=== PATIENT | female | born 1985 | race Caucasian/White ===

== ENCOUNTER 2017-10-11 13:39 | Inpatient (IN) | payer MEDICAID ==
[2017-10-11 14:56] LABS: ADD MAN DIFF? NO
[2017-10-11 15:06] LABS: WHITE BLOOD COUNT 9.3 10^3/ul (4.8-10.8)
[2017-10-11 15:06] LABS: BASOPHILS % 0.3 % (0.0-2.0); EOSINOPHILS % 0.3 % (0.0-7.0); HEMATOCRIT 31.6 % (37.0-47.0); HEMOGLOBIN 10.6 g/dl (12.0-16.0); LYMPHOCYTES # 1.7 10^3/ul (0.8-2.9); LYMPHOCYTES % 18.4 % (15.0-51.0); MEAN CORPUSCULAR HEMOGLOBIN 29.3 pg (29.0-33.0); MEAN CORPUSCULAR HGB CONC 33.5 g/dl (32.0-37.0); MEAN CORPUSCULAR VOLUME 87.3 fl (82.0-101.0); MEAN PLATELET VOLUME 12.7 fl (7.4-10.4); MONOCYTE # 0.8 10^3/ul (0.3-0.9); MONOCYTES % 8.2 % (0.0-11.0); NEUTROPHIL # 6.7 10^3/ul (1.6-7.5); NEUTROPHILS % 72.4 % (39.0-77.0); PLATELET COUNT 111 10^3/UL (140-415); RED BLOOD COUNT 3.62 10^6/ul (4.20-5.40); RED CELL DISTRIBUTION WIDTH 13.5 % (11.5-14.5)
[2017-10-11 15:14] LABS: INR 0.89; PROTIME 12.1 Sec (11.9-14.9); PT RATIO 0.9
[2017-10-11 15:15] LABS: PARTIAL THROMBOPLASTIN TIME 26.6 Sec (25.0-35.0)
[2017-10-11 15:16] LABS: ALANINE AMINOTRANSFERASE 67 IU/L (13-69); ALBUMIN 3.2 g/dl (3.3-4.9); ALKALINE PHOSPHATASE 89 IU/L (42-121); ANION GAP 13 (8-16); ASPARTATE AMINO TRANSFERASE 39 IU/L (15-46); BILIRUBIN,INDIRECT 0.1 mg/dl (0-1.1); BILIRUBIN,TOTAL 0.1 mg/dl (0.2-1.3); BLOOD UREA NITROGEN 16 mg/dl (7-20); CALCIUM 8.8 mg/dl (8.4-10.2); CARBON DIOXIDE 21 mmol/L (21-31); CHLORIDE 108 mmol/L (97-110); CREATININE 0.73 mg/dl (0.44-1.00); GLUCOSE 103 mg/dl (70-220); SODIUM 138 mmol/L (135-144); TOTAL PROTEIN 6.1 g/dl (6.1-8.1); URIC ACID 6.9 mg/dl (3.1-7.9)
[2017-10-11 16:05] LABS: ADD UMIC YES; UR AMORPHOUS CRYSTAL FEW /HPF (NONE SEEN); UR ASCORBIC ACID NEGATIVE (NEGATIVE); UR BILIRUBIN (Dip) NEGATIVE (NEGATIVE); UR BLOOD (Dip) NEGATIVE (NEGATIVE); UR CLARITY SLIGHTLY CLOUDY (CLEAR); UR COLOR YELLOW (YELLOW); UR GLUCOSE (Dip) NEGATIVE (NEGATIVE); UR HYALINE CAST FEW /HPF (NONE SEEN); UR KETONES (Dip) NEGATIVE (NEGATIVE); UR LEUKOCYTE ESTERASE (Dip) NEGATIVE Leu/ul (NEGATIVE); UR MUCUS FEW /HPF (NONE SEEN); UR NITRITE (Dip) NEGATIVE (NEGATIVE); UR RBC 1 /HPF (0-5); UR SPECIFIC GRAVITY (Dip) 1.013 (1.003-1.030); UR SQUAMOUS EPITHELIAL CELL FEW /HPF (FEW); UR TOTAL PROTEIN (Dip) 3+ mg/dl (NEGATIVE); UR UROBILINOGEN (Dip) NEGATIVE (NEGATIVE); UR WBC 3 /HPF (0-5)
[2017-10-11] MEDS: LACTATED RINGER'S 1,000 ML IV (17:27)
[2017-10-11] MEDS: MAGNESIUM SULFATE 4 GM/100 ML 100 ML IV (17:30)
[2017-10-11] MEDS: MAGNESIUM SULFATE 20 GM/500 ML 500 ML IV (17:55)
[2017-10-11] MEDS: LABETALOL 200 MG TAB PO (21:21)
[2017-10-12 01:08] LABS: MAGNESIUM 5.1 mg/dl (1.7-2.5)
[2017-10-12] MEDS: MAGNESIUM SULFATE 20 GM/500 ML 500 ML IV ×2 (03:03→09:02)
[2017-10-12] MEDS: LACTATED RINGER'S 1,000 ML IV ×2 (03:47→20:00)
[2017-10-12 08:18] LABS: MAGNESIUM 5.7 mg/dl (1.7-2.5)
[2017-10-12] MEDS: ACETAMINOPHEN 325 MG TAB PO (08:54)
[2017-10-12] MEDS: LABETALOL 200 MG TAB PO (08:56)
[2017-10-12] MEDS: ONDANSETRON 4 MG INJ IV (08:57)
[2017-10-12] MEDS ORDERED: INFLUENZA VIRUS VACCINE 0.5 ML (DISPENSING) IM* (09:00)
[2017-10-12 12:33] LABS: MAGNESIUM 5.3 mg/dl (1.7-2.5)
[2017-10-12 12:51] LABS: RUPTURE FETAL MEMBRANES NEGATIVE (NEGATIVE)
[2017-10-12 14:53] LABS: ADD MAN DIFF? NO
[2017-10-12 15:01] LABS: WHITE BLOOD COUNT 11.2 10^3/ul (4.8-10.8)
[2017-10-12 15:01] LABS: BASOPHILS % 0.3 % (0.0-2.0); EOSINOPHILS % 0.1 % (0.0-7.0); HEMATOCRIT 31.5 % (37.0-47.0); HEMOGLOBIN 10.9 g/dl (12.0-16.0); LYMPHOCYTES # 1.4 10^3/ul (0.8-2.9); LYMPHOCYTES % 12.5 % (15.0-51.0); MEAN CORPUSCULAR HEMOGLOBIN 29.8 pg (29.0-33.0); MEAN CORPUSCULAR HGB CONC 34.6 g/dl (32.0-37.0); MEAN CORPUSCULAR VOLUME 86.1 fl (82.0-101.0); MEAN PLATELET VOLUME 12.2 fl (7.4-10.4); MONOCYTE # 0.8 10^3/ul (0.3-0.9); MONOCYTES % 6.9 % (0.0-11.0); NEUTROPHIL # 8.9 10^3/ul (1.6-7.5); NEUTROPHILS % 79.8 % (39.0-77.0); PLATELET COUNT 119 10^3/UL (140-415); RED BLOOD COUNT 3.66 10^6/ul (4.20-5.40); RED CELL DISTRIBUTION WIDTH 13.6 % (11.5-14.5)
[2017-10-12 15:29] LABS: ALANINE AMINOTRANSFERASE 77 IU/L (13-69); ALBUMIN 2.9 g/dl (3.3-4.9); ALBUMIN/GLOBULIN RATIO 1.07; ALKALINE PHOSPHATASE 95 IU/L (42-121); ANION GAP 11 (8-16); ASPARTATE AMINO TRANSFERASE 56 IU/L (15-46); BILIRUBIN,INDIRECT 0.1 mg/dl (0-1.1); BILIRUBIN,TOTAL 0.1 mg/dl (0.2-1.3); BLOOD UREA NITROGEN 12 mg/dl (7-20); CALCIUM 7.2 mg/dl (8.4-10.2); CARBON DIOXIDE 21 mmol/L (21-31); CHLORIDE 106 mmol/L (97-110); CREATININE 0.65 mg/dl (0.44-1.00); GLUCOSE 108 mg/dl (70-220); POTASSIUM 4.3 mmol/L (3.5-5.1); SODIUM 134 mmol/L (135-144); TOTAL PROTEIN 5.6 g/dl (6.1-8.1)
[2017-10-12] MEDS: BETAMET NA PHOS/AC(6 MG/ML) 5ML INJ IM (16:09)
[2017-10-12] MEDS: DEXTROSE 5%-LR 1,000 ML IV (16:27)
[2017-10-12 17:27] LABS: COLLECTION PERIOD 24 hrs
[2017-10-12] MEDS ORDERED: LABETALOL HCL 20MG INJ IV (18:00)
[2017-10-12 18:28] LABS: CREATININE,URINE RANDOM 36.89 mg/dl (20-320)
[2017-10-12 18:31] LABS: COLLECTION PERIOD 24 hrs; CREATININE CLEARANCE 118.2 mls/min (84.0-162.0); SCRET 0.65 mg/dl (0.44-1.00); VOLUME 3000 ml/24hrs
[2017-10-12 18:40] LABS: VOLUME 3000 mls
[2017-10-12 18:55] LABS: MAGNESIUM 4.8 mg/dl (1.7-2.5)
[2017-10-12 19:39] LABS: RUPTURE FETAL MEMBRANES NEGATIVE (NEGATIVE)
[2017-10-12] MEDS: FUROSEMIDE 20 MG INJ IV (20:50)
[2017-10-12] MEDS ORDERED: DIPHENHYDRAMINE 50 MG INJ IM (23:30)
[2017-10-13] MEDS: LABETALOL 200 MG TAB PO ×2 (00:16→09:59)
[2017-10-13 01:28] LABS: MAGNESIUM 4.9 mg/dl (1.7-2.5)
[2017-10-13] MEDS: BETAMET NA PHOS/AC(6 MG/ML) 5ML INJ IM (04:16)
[2017-10-13] MEDS: MAGNESIUM SULFATE 20 GM/500 ML 500 ML IV (04:45)
[2017-10-13 06:44] LABS: ADD MAN DIFF? NO
[2017-10-13 06:50] LABS: BASOPHILS % 0.1 % (0.0-2.0); HEMATOCRIT 32.7 % (37.0-47.0); HEMOGLOBIN 11.3 g/dl (12.0-16.0); LYMPHOCYTES # 0.9 10^3/ul (0.8-2.9); MEAN CORPUSCULAR HEMOGLOBIN 30.4 pg (29.0-33.0); MEAN CORPUSCULAR HGB CONC 34.6 g/dl (32.0-37.0); MEAN CORPUSCULAR VOLUME 87.9 fl (82.0-101.0); MEAN PLATELET VOLUME 12.2 fl (7.4-10.4); MONOCYTE # 0.2 10^3/ul (0.3-0.9); MONOCYTES % 2.1 % (0.0-11.0); NEUTROPHIL # 9.7 10^3/ul (1.6-7.5); NEUTROPHILS % 89.1 % (39.0-77.0); PLATELET COUNT 132 10^3/UL (140-415); RED BLOOD COUNT 3.72 10^6/ul (4.20-5.40); RED CELL DISTRIBUTION WIDTH 13.6 % (11.5-14.5)
[2017-10-13 06:50] LABS: WHITE BLOOD COUNT 10.9 10^3/ul (4.8-10.8)
[2017-10-13 07:29] LABS: ALANINE AMINOTRANSFERASE 67 IU/L (13-69); ALBUMIN/GLOBULIN RATIO 1.11; ALKALINE PHOSPHATASE 98 IU/L (42-121); ANION GAP 15 (8-16); ASPARTATE AMINO TRANSFERASE 41 IU/L (15-46); BLOOD UREA NITROGEN 12 mg/dl (7-20); CALCIUM 7.3 mg/dl (8.4-10.2); CARBON DIOXIDE 20 mmol/L (21-31); CHLORIDE 108 mmol/L (97-110); CREATININE 0.74 mg/dl (0.44-1.00); GLUCOSE 137 mg/dl (70-220); POTASSIUM 4.5 mmol/L (3.5-5.1); SODIUM 138 mmol/L (135-144); TOTAL PROTEIN 5.7 g/dl (6.1-8.1)
[2017-10-13] MEDS: DEXTROSE 5%-LR 1,000 ML IV (10:04)
[2017-10-13] MEDS: FUROSEMIDE 20 MG INJ IV ×2 (12:20→21:59)
[2017-10-13] MEDS ORDERED: BETAMET NA PHOS/AC(6 MG/ML) 5ML INJ IM (16:00)
[2017-10-13 18:47] LABS: MAGNESIUM 4.9 mg/dl (1.7-2.5)
[2017-10-13 19:01] LABS: TROPONIN-I < 0.012 ng/ml (0.00-0.12)
[2017-10-13] MEDS: LABETALOL 100 MG TAB PO (21:04)
[2017-10-14] MEDS: MAGNESIUM SULFATE 20 GM/500 ML 500 ML IV (00:25)
[2017-10-14 01:09] LABS: MAGNESIUM 4.2 mg/dl (1.7-2.5)
[2017-10-14 01:20] LABS: TROPONIN-I 0.014 ng/ml (0.00-0.12)
[2017-10-14] MEDS: LACTATED RINGER'S 1,000 ML IV (03:47)
[2017-10-14 07:33] LABS: ADD MAN DIFF? NO
[2017-10-14 07:39] LABS: Allen Test ACCEPTAB; Arterial Base Excess -0.4 mmol/L (-3.0-3); Arterial Blood Gas Oxygen Sat 97.5 mmHG (95.0-98.0); Arterial COHb 0.3 % (0.0-3.0); Arterial Fraction of Oxyhgb 96.8 % (93.0-99.0); Arterial HCO3 23.2 mmol/L (22.0-26.0); Arterial MetHb 0.4 % (0.0-1.5); Arterial Total Hemglobin 11.8 g/dl (12.0-18.0); Arterial pCO2 34.4 mmhg (35-45); MODE NASAL CANNULA; Site Right Radial
[2017-10-14 07:49] LABS: WHITE BLOOD COUNT 14.4 10^3/ul (4.8-10.8)
[2017-10-14 07:49] LABS: BASOPHILS % 0.1 % (0.0-2.0); HEMATOCRIT 33.2 % (37.0-47.0); HEMOGLOBIN 11.1 g/dl (12.0-16.0); LYMPHOCYTES # 1.1 10^3/ul (0.8-2.9); LYMPHOCYTES % 7.7 % (15.0-51.0); MEAN CORPUSCULAR HEMOGLOBIN 29.7 pg (29.0-33.0); MEAN CORPUSCULAR HGB CONC 33.4 g/dl (32.0-37.0); MEAN CORPUSCULAR VOLUME 88.8 fl (82.0-101.0); MEAN PLATELET VOLUME 12.4 fl (7.4-10.4); MONOCYTE # 0.9 10^3/ul (0.3-0.9); MONOCYTES % 6.3 % (0.0-11.0); NEUTROPHIL # 12.2 10^3/ul (1.6-7.5); NEUTROPHILS % 84.9 % (39.0-77.0); PLATELET COUNT 130 10^3/UL (140-415); RED BLOOD COUNT 3.74 10^6/ul (4.20-5.40)
[2017-10-14 08:12] LABS: ALANINE AMINOTRANSFERASE 68 IU/L (13-69); ALKALINE PHOSPHATASE 93 IU/L (42-121); ANION GAP 13 (8-16); ASPARTATE AMINO TRANSFERASE 45 IU/L (15-46); BLOOD UREA NITROGEN 21 mg/dl (7-20); CALCIUM 7.4 mg/dl (8.4-10.2); CARBON DIOXIDE 22 mmol/L (21-31); CHLORIDE 107 mmol/L (97-110); CREATININE 0.79 mg/dl (0.44-1.00); GLUCOSE 104 mg/dl (70-220); POTASSIUM 4.7 mmol/L (3.5-5.1); SODIUM 137 mmol/L (135-144); TOTAL PROTEIN 5.5 g/dl (6.1-8.1)
[2017-10-14 08:14] LABS: MAGNESIUM 4.8 mg/dl (1.7-2.5)
[2017-10-14] MEDS: LABETALOL 100 MG TAB PO ×2 (09:27→21:23)
[2017-10-14] MEDS: FUROSEMIDE 20 MG INJ IV ×2 (11:22→18:56)
[2017-10-14 13:55] LABS: ALANINE AMINOTRANSFERASE 84 IU/L (13-69); ALBUMIN/GLOBULIN RATIO 1.11; ALKALINE PHOSPHATASE 88 IU/L (42-121); ANION GAP 13 (8-16); ASPARTATE AMINO TRANSFERASE 71 IU/L (15-46); BLOOD UREA NITROGEN 20 mg/dl (7-20); CALCIUM 7.3 mg/dl (8.4-10.2); CARBON DIOXIDE 23 mmol/L (21-31); CHLORIDE 107 mmol/L (97-110); CREATININE 0.76 mg/dl (0.44-1.00); GLUCOSE 113 mg/dl (70-220); POTASSIUM 4.1 mmol/L (3.5-5.1); SODIUM 139 mmol/L (135-144); TOTAL PROTEIN 5.7 g/dl (6.1-8.1)
[2017-10-14 13:56] LABS: MAGNESIUM 4.3 mg/dl (1.7-2.5)
[2017-10-14] MEDS: HYDROCORTISONE 0.5% 28.35 GM CR TOP ×2 (18:43→20:13)
[2017-10-14] MEDS: AL HYDROX/MG HYDROX/SIMETH 30 ML CUP PO (21:24)
[2017-10-15] MEDS: FUROSEMIDE 20 MG INJ IV ×2 (06:28→18:20)
[2017-10-15] MEDS: HYDROCORTISONE 0.5% 28.35 GM CR TOP ×2 (06:33→23:06)
[2017-10-15] MEDS: LABETALOL 100 MG TAB PO ×2 (09:01→20:47)
[2017-10-16] MEDS: FUROSEMIDE 20 MG INJ IV (05:40)
[2017-10-16] MEDS: HYDROCORTISONE 0.5% 28.35 GM CR TOP (05:47)
[2017-10-16 07:39] LABS: ADD MAN DIFF? NO
[2017-10-16 07:44] LABS: WHITE BLOOD COUNT 10.5 10^3/ul (4.8-10.8)
[2017-10-16 07:44] LABS: BASOPHILS % 0.3 % (0.0-2.0); EOSINOPHILS # 0.1 10^3/ul (0.0-0.5); EOSINOPHILS % 0.8 % (0.0-7.0); HEMATOCRIT 33.3 % (37.0-47.0); HEMOGLOBIN 11.1 g/dl (12.0-16.0); LYMPHOCYTES % 19.4 % (15.0-51.0); MEAN CORPUSCULAR HEMOGLOBIN 29.5 pg (29.0-33.0); MEAN CORPUSCULAR HGB CONC 33.3 g/dl (32.0-37.0); MEAN CORPUSCULAR VOLUME 88.6 fl (82.0-101.0); MEAN PLATELET VOLUME 12.2 fl (7.4-10.4); MONOCYTE # 1.2 10^3/ul (0.3-0.9); MONOCYTES % 11.5 % (0.0-11.0); NEUTROPHIL # 7.1 10^3/ul (1.6-7.5); NEUTROPHILS % 67.3 % (39.0-77.0); PLATELET COUNT 129 10^3/UL (140-415); RED BLOOD COUNT 3.76 10^6/ul (4.20-5.40); RED CELL DISTRIBUTION WIDTH 13.3 % (11.5-14.5)
[2017-10-16 08:11] LABS: BLOOD UREA NITROGEN 21 mg/dl (7-20); CALCIUM 7.9 mg/dl (8.4-10.2); CARBON DIOXIDE 25 mmol/L (21-31); CHLORIDE 103 mmol/L (97-110); GLUCOSE 84 mg/dl (70-220); MAGNESIUM 2.3 mg/dl (1.7-2.5); PHOSPHORUS 5.2 mg/dl (2.5-4.9); SODIUM 136 mmol/L (135-144)
[2017-10-16 08:14] LABS: ANION GAP 12 (8-16); POTASSIUM 4.3 mmol/L (3.5-5.1)
[2017-10-16] MEDS: LABETALOL 100 MG TAB PO ×2 (09:13→21:00)
[2017-10-17 07:37] LABS: ADD MAN DIFF? NO
[2017-10-17 07:49] LABS: WHITE BLOOD COUNT 10.4 10^3/ul (4.8-10.8)
[2017-10-17 07:50] LABS: BASOPHILS % 0.4 % (0.0-2.0); EOSINOPHILS # 0.1 10^3/ul (0.0-0.5); EOSINOPHILS % 1.3 % (0.0-7.0); HEMATOCRIT 33.3 % (37.0-47.0); LYMPHOCYTES # 2.3 10^3/ul (0.8-2.9); LYMPHOCYTES % 21.9 % (15.0-51.0); MEAN CORPUSCULAR HEMOGLOBIN 29.3 pg (29.0-33.0); MEAN CORPUSCULAR VOLUME 88.8 fl (82.0-101.0); MEAN PLATELET VOLUME 12.2 fl (7.4-10.4); MONOCYTE # 1.1 10^3/ul (0.3-0.9); MONOCYTES % 10.2 % (0.0-11.0); NEUTROPHIL # 6.8 10^3/ul (1.6-7.5); NEUTROPHILS % 65.5 % (39.0-77.0); PLATELET COUNT 119 10^3/UL (140-415); RED BLOOD COUNT 3.75 10^6/ul (4.20-5.40); RED CELL DISTRIBUTION WIDTH 13.4 % (11.5-14.5)
[2017-10-17 07:57] LABS: ALANINE AMINOTRANSFERASE 97 IU/L (13-69); ALBUMIN 2.7 g/dl (3.3-4.9); ALKALINE PHOSPHATASE 108 IU/L (42-121); ANION GAP 10 (8-16); ASPARTATE AMINO TRANSFERASE 71 IU/L (15-46); BILIRUBIN,INDIRECT 0.1 mg/dl (0-1.1); BILIRUBIN,TOTAL 0.1 mg/dl (0.2-1.3); BLOOD UREA NITROGEN 20 mg/dl (7-20); CARBON DIOXIDE 24 mmol/L (21-31); CHLORIDE 106 mmol/L (97-110); GLUCOSE 72 mg/dl (70-220); POTASSIUM 4.3 mmol/L (3.5-5.1); SODIUM 136 mmol/L (135-144); TOTAL PROTEIN 5.2 g/dl (6.1-8.1)
[2017-10-17 07:58] LABS: ALBUMIN/GLOBULIN RATIO 1.08
[2017-10-17] MEDS: FUROSEMIDE 20 MG TAB PO (08:17)
[2017-10-17] MEDS: LABETALOL 100 MG TAB PO ×2 (09:05→21:17)
[2017-10-17] MEDS: PRENATAL VITAMIN PO ×2 (09:27→09:35)
[2017-10-17] MEDS: HYDROCORTISONE 0.5% 28.35 GM CR TOP ×2 (09:37→21:00)
[2017-10-18] MEDS: FUROSEMIDE 20 MG TAB PO (09:00)
[2017-10-18] MEDS: LABETALOL 100 MG TAB PO ×2 (09:09→20:52)
[2017-10-18] MEDS: HYDROCORTISONE 0.5% 28.35 GM CR TOP ×2 (09:11→20:58)
[2017-10-18] MEDS: LACTATED RINGER'S 500 ML IV (12:53)
[2017-10-19] MEDS: PRENATAL VITAMIN PO (07:52)
[2017-10-19 08:38] LABS: ADD MAN DIFF? NO
[2017-10-19 08:50] LABS: BASOPHILS % 0.3 % (0.0-2.0); EOSINOPHILS # 0.1 10^3/ul (0.0-0.5); HEMATOCRIT 32.8 % (37.0-47.0); HEMOGLOBIN 11.2 g/dl (12.0-16.0); LYMPHOCYTES # 2.1 10^3/ul (0.8-2.9); LYMPHOCYTES % 22.2 % (15.0-51.0); MEAN CORPUSCULAR HEMOGLOBIN 30.1 pg (29.0-33.0); MEAN CORPUSCULAR HGB CONC 34.1 g/dl (32.0-37.0); MEAN CORPUSCULAR VOLUME 88.2 fl (82.0-101.0); MEAN PLATELET VOLUME 12.4 fl (7.4-10.4); MONOCYTE # 0.8 10^3/ul (0.3-0.9); MONOCYTES % 8.5 % (0.0-11.0); NEUTROPHIL # 6.3 10^3/ul (1.6-7.5); NEUTROPHILS % 67.6 % (39.0-77.0); PLATELET COUNT 125 10^3/UL (140-415); RED BLOOD COUNT 3.72 10^6/ul (4.20-5.40); RED CELL DISTRIBUTION WIDTH 13.5 % (11.5-14.5)
[2017-10-19 08:50] LABS: WHITE BLOOD COUNT 9.3 10^3/ul (4.8-10.8)
[2017-10-19] MEDS: HYDROCORTISONE 0.5% 28.35 GM CR TOP ×2 (09:00→21:00)
[2017-10-19] MEDS: FUROSEMIDE 20 MG TAB PO (09:00)
[2017-10-19] MEDS: LABETALOL 100 MG TAB PO ×2 (09:06→21:38)
[2017-10-19 09:09] LABS: PARTIAL THROMBOPLASTIN TIME 26.3 Sec (25.0-35.0)
[2017-10-19 09:17] LABS: ALANINE AMINOTRANSFERASE 63 IU/L (13-69); ALBUMIN 2.5 g/dl (3.3-4.9); ALBUMIN/GLOBULIN RATIO 0.96; ALKALINE PHOSPHATASE 117 IU/L (42-121); ANION GAP 7 (8-16); ASPARTATE AMINO TRANSFERASE 28 IU/L (15-46); BILIRUBIN,INDIRECT 0.1 mg/dl (0-1.1); BILIRUBIN,TOTAL 0.1 mg/dl (0.2-1.3); BLOOD UREA NITROGEN 14 mg/dl (7-20); CARBON DIOXIDE 21 mmol/L (21-31); CHLORIDE 111 mmol/L (97-110); CREATININE 0.67 mg/dl (0.44-1.00); GLUCOSE 80 mg/dl (70-220); POTASSIUM 4.4 mmol/L (3.5-5.1); SODIUM 135 mmol/L (135-144); TOTAL PROTEIN 5.1 g/dl (6.1-8.1); URIC ACID 7.2 mg/dl (3.1-7.9)
[2017-10-19 09:34] LABS: INR 0.96; PROTIME 12.9 Sec (11.9-14.9)
[2017-10-19 11:24] LABS: ADD UMIC YES; UR ASCORBIC ACID NEGATIVE (NEGATIVE); UR BACTERIA FEW /HPF (NONE SEEN); UR BILIRUBIN (Dip) NEGATIVE (NEGATIVE); UR BLOOD (Dip) NEGATIVE (NEGATIVE); UR CLARITY SLIGHTLY CLOUDY (CLEAR); UR COLOR YELLOW (YELLOW); UR GLUCOSE (Dip) NEGATIVE (NEGATIVE); UR KETONES (Dip) NEGATIVE (NEGATIVE); UR LEUKOCYTE ESTERASE (Dip) NEGATIVE Leu/ul (NEGATIVE); UR MUCUS FEW /HPF (NONE SEEN); UR NITRITE (Dip) NEGATIVE (NEGATIVE); UR RBC 2 /HPF (0-5); UR SQUAMOUS EPITHELIAL CELL FEW /HPF (FEW); UR TOTAL PROTEIN (Dip) 3+ mg/dl (NEGATIVE); UR UROBILINOGEN (Dip) NEGATIVE (NEGATIVE); UR WBC 3 /HPF (0-5)
[2017-10-20] MEDS: FUROSEMIDE 20 MG TAB PO (09:00)
[2017-10-20] MEDS: LABETALOL 100 MG TAB PO ×2 (09:12→21:29)
[2017-10-20] MEDS: PRENATAL VITAMIN PO (09:15)
[2017-10-20] MEDS: HYDROCORTISONE 0.5% 28.35 GM CR TOP ×2 (20:20→21:00)
[2017-10-21] MEDS: HYDROCORTISONE 0.5% 28.35 GM CR TOP ×2 (09:00→21:13)
[2017-10-21] MEDS: PRENATAL VITAMIN PO (09:17)
[2017-10-21] MEDS: LABETALOL 100 MG TAB PO ×2 (09:18→21:13)
[2017-10-22] MEDS: LABETALOL 100 MG TAB PO ×2 (09:06→16:51)
[2017-10-22] MEDS: HYDROCORTISONE 0.5% 28.35 GM CR TOP ×2 (09:08→21:00)
[2017-10-22] MEDS: PRENATAL VITAMIN PO (09:08)
[2017-10-22] MEDS: AL HYDROX/MG HYDROX/SIMETH 30 ML CUP PO (17:24)
[2017-10-23] MEDS: LABETALOL 100 MG TAB PO ×4 (00:53→23:30)
[2017-10-23 07:50] LABS: ADD MAN DIFF? NO
[2017-10-23 07:59] LABS: WHITE BLOOD COUNT 8.6 10^3/ul (4.8-10.8)
[2017-10-23 07:59] LABS: BASOPHIL # 0.1 10^3/ul (0.0-0.1); BASOPHILS % 0.6 % (0.0-2.0); EOSINOPHILS # 0.1 10^3/ul (0.0-0.5); EOSINOPHILS % 0.9 % (0.0-7.0); HEMATOCRIT 33.6 % (37.0-47.0); HEMOGLOBIN 11.5 g/dl (12.0-16.0); LYMPHOCYTES # 2.3 10^3/ul (0.8-2.9); LYMPHOCYTES % 26.5 % (15.0-51.0); MEAN CORPUSCULAR HGB CONC 34.2 g/dl (32.0-37.0); MEAN CORPUSCULAR VOLUME 87.7 fl (82.0-101.0); MEAN PLATELET VOLUME 12.6 fl (7.4-10.4); MONOCYTE # 0.8 10^3/ul (0.3-0.9); MONOCYTES % 8.7 % (0.0-11.0); NEUTROPHIL # 5.4 10^3/ul (1.6-7.5); NEUTROPHILS % 62.8 % (39.0-77.0); PLATELET COUNT 120 10^3/UL (140-415); RED BLOOD COUNT 3.83 10^6/ul (4.20-5.40); RED CELL DISTRIBUTION WIDTH 13.9 % (11.5-14.5)
[2017-10-23 08:23] LABS: ALANINE AMINOTRANSFERASE 45 IU/L (13-69); ALBUMIN 2.5 g/dl (3.3-4.9); ALBUMIN/GLOBULIN RATIO 0.92; ALKALINE PHOSPHATASE 123 IU/L (42-121); ANION GAP 9 (8-16); ASPARTATE AMINO TRANSFERASE 26 IU/L (15-46); BILIRUBIN,INDIRECT 0.1 mg/dl (0-1.1); BILIRUBIN,TOTAL 0.1 mg/dl (0.2-1.3); BLOOD UREA NITROGEN 13 mg/dl (7-20); CALCIUM 8.3 mg/dl (8.4-10.2); CARBON DIOXIDE 23 mmol/L (21-31); CHLORIDE 110 mmol/L (97-110); CREATININE 0.74 mg/dl (0.44-1.00); GLUCOSE 77 mg/dl (70-220); POTASSIUM 4.2 mmol/L (3.5-5.1); SODIUM 138 mmol/L (135-144); TOTAL PROTEIN 5.2 g/dl (6.1-8.1)
[2017-10-23] MEDS: HYDROCORTISONE 0.5% 28.35 GM CR TOP ×2 (09:00→21:00)
[2017-10-23] MEDS: PRENATAL VITAMIN PO (09:14)
[2017-10-24] MEDS: LABETALOL 100 MG TAB PO ×3 (06:03→22:14)
[2017-10-24] MEDS: HYDROCORTISONE 0.5% 28.35 GM CR TOP ×2 (09:00→21:00)
[2017-10-24] MEDS: PRENATAL VITAMIN PO (09:06)
[2017-10-25] MEDS: LABETALOL 100 MG TAB PO ×3 (05:47→22:00)
[2017-10-25] MEDS: HYDROCORTISONE 0.5% 28.35 GM CR TOP (09:00)
[2017-10-25] MEDS: PRENATAL VITAMIN PO (09:23)
[2017-10-26] MEDS: LABETALOL 100 MG TAB PO ×3 (05:56→22:02)
[2017-10-26 06:07] LABS: ADD MAN DIFF? NO
[2017-10-26 06:50] LABS: BASOPHIL # 0.1 10^3/ul (0.0-0.1); BASOPHILS % 0.6 % (0.0-2.0); EOSINOPHILS # 0.1 10^3/ul (0.0-0.5); HEMATOCRIT 34.9 % (37.0-47.0); LYMPHOCYTES # 2.4 10^3/ul (0.8-2.9); LYMPHOCYTES % 26.4 % (15.0-51.0); MEAN CORPUSCULAR HEMOGLOBIN 30.2 pg (29.0-33.0); MEAN CORPUSCULAR HGB CONC 34.4 g/dl (32.0-37.0); MEAN CORPUSCULAR VOLUME 87.7 fl (82.0-101.0); MEAN PLATELET VOLUME 12.5 fl (7.4-10.4); MONOCYTE # 0.8 10^3/ul (0.3-0.9); MONOCYTES % 8.7 % (0.0-11.0); NEUTROPHIL # 5.7 10^3/ul (1.6-7.5); PLATELET COUNT 128 10^3/UL (140-415); RED BLOOD COUNT 3.98 10^6/ul (4.20-5.40); RED CELL DISTRIBUTION WIDTH 13.8 % (11.5-14.5)
[2017-10-26 06:50] LABS: WHITE BLOOD COUNT 9.1 10^3/ul (4.8-10.8)
[2017-10-26 07:06] LABS: ALANINE AMINOTRANSFERASE 47 IU/L (13-69); ALBUMIN 2.6 g/dl (3.3-4.9); ALBUMIN/GLOBULIN RATIO 0.92; ALKALINE PHOSPHATASE 135 IU/L (42-121); ANION GAP 9 (8-16); ASPARTATE AMINO TRANSFERASE 31 IU/L (15-46); BILIRUBIN,INDIRECT 0.1 mg/dl (0-1.1); BILIRUBIN,TOTAL 0.1 mg/dl (0.2-1.3); BLOOD UREA NITROGEN 14 mg/dl (7-20); CALCIUM 8.4 mg/dl (8.4-10.2); CARBON DIOXIDE 21 mmol/L (21-31); CHLORIDE 110 mmol/L (97-110); CREATININE 0.75 mg/dl (0.44-1.00); GLUCOSE 84 mg/dl (70-220); POTASSIUM 4.2 mmol/L (3.5-5.1); SODIUM 136 mmol/L (135-144); TOTAL PROTEIN 5.4 g/dl (6.1-8.1)
[2017-10-26] MEDS: PRENATAL VITAMIN PO (14:02)
[2017-10-26] MEDS: HYDROCORTISONE 0.5% 28.35 GM CR TOP (21:00)
[2017-10-27] MEDS: LABETALOL 100 MG TAB PO (00:56)
[2017-10-27] MEDS: LABETALOL HCL 20MG INJ IV (03:57)
[2017-10-27] MEDS: LABETALOL 200 MG TAB PO ×3 (05:56→22:05)
[2017-10-27] MEDS: PRENATAL VITAMIN PO (08:51)
[2017-10-27] MEDS: HYDROCORTISONE 0.5% 28.35 GM CR TOP ×2 (09:00→21:00)
[2017-10-27] MEDS: BETAMET NA PHOS/AC(6 MG/ML) 5ML INJ IM (11:09)
[2017-10-27 11:36] LABS: ADD MAN DIFF? NO
[2017-10-27 11:51] LABS: WHITE BLOOD COUNT 8.4 10^3/ul (4.8-10.8)
[2017-10-27 11:51] LABS: BASOPHILS % 0.5 % (0.0-2.0); EOSINOPHILS # 0.1 10^3/ul (0.0-0.5); EOSINOPHILS % 0.7 % (0.0-7.0); HEMATOCRIT 33.9 % (37.0-47.0); HEMOGLOBIN 11.9 g/dl (12.0-16.0); LYMPHOCYTES # 1.6 10^3/ul (0.8-2.9); LYMPHOCYTES % 19.3 % (15.0-51.0); MEAN CORPUSCULAR HEMOGLOBIN 30.5 pg (29.0-33.0); MEAN CORPUSCULAR HGB CONC 35.1 g/dl (32.0-37.0); MEAN CORPUSCULAR VOLUME 86.9 fl (82.0-101.0); MEAN PLATELET VOLUME 12.3 fl (7.4-10.4); MONOCYTE # 0.6 10^3/ul (0.3-0.9); MONOCYTES % 7.3 % (0.0-11.0); NEUTROPHILS % 71.8 % (39.0-77.0); PLATELET COUNT 116 10^3/UL (140-415)
[2017-10-27 12:07] LABS: ALANINE AMINOTRANSFERASE 50 IU/L (13-69); ALBUMIN 2.5 g/dl (3.3-4.9); ALBUMIN/GLOBULIN RATIO 0.89; ALKALINE PHOSPHATASE 129 IU/L (42-121); ANION GAP 9 (8-16); ASPARTATE AMINO TRANSFERASE 38 IU/L (15-46); BILIRUBIN,INDIRECT 0.1 mg/dl (0-1.1); BILIRUBIN,TOTAL 0.1 mg/dl (0.2-1.3); BLOOD UREA NITROGEN 11 mg/dl (7-20); CALCIUM 8.3 mg/dl (8.4-10.2); CARBON DIOXIDE 23 mmol/L (21-31); CHLORIDE 110 mmol/L (97-110); CREATININE 0.72 mg/dl (0.44-1.00); GLUCOSE 69 mg/dl (70-220); POTASSIUM 4.2 mmol/L (3.5-5.1); SODIUM 138 mmol/L (135-144); TOTAL PROTEIN 5.3 g/dl (6.1-8.1)
[2017-10-28] MEDS: LABETALOL 200 MG TAB PO ×3 (06:20→22:14)
[2017-10-28] MEDS: HYDROCORTISONE 0.5% 28.35 GM CR TOP ×2 (09:00→21:00)
[2017-10-28] MEDS: PRENATAL VITAMIN PO (09:56)
[2017-10-29] MEDS: LABETALOL 200 MG TAB PO ×3 (06:34→21:48)
[2017-10-29] MEDS: HYDROCORTISONE 0.5% 28.35 GM CR TOP ×2 (09:00→21:00)
[2017-10-29] MEDS: PRENATAL VITAMIN PO (09:06)
[2017-10-29] MEDS: LABETALOL HCL 20MG INJ IV ×2 (09:41→17:53)
[2017-10-30] MEDS ORDERED: NACL 0.9% 3 ML SYG IV
[2017-10-30] MEDS: LABETALOL HCL 20MG INJ IV ×2 (00:54→06:55)
[2017-10-30] MEDS: AL HYDROX/MG HYDROX/SIMETH 30 ML CUP PO (02:08)
[2017-10-30] MEDS ORDERED: hydrALAzine 20 MG INJ (02:40)
[2017-10-30] MEDS: LABETALOL 200 MG TAB PO ×3 (03:00→20:22)
[2017-10-30] MEDS ORDERED: AL HYDROX/MG HYDROX/SIMETH 30 ML CUP PO (04:00)
[2017-10-30] MEDS: ACETAMINOPHEN 325 MG TAB PO (04:20)
[2017-10-30] MEDS: hydrALAzine 20 MG INJ IV (04:30)
[2017-10-30 05:21] LABS: ADD MAN DIFF? NO
[2017-10-30 05:26] LABS: BASOPHIL # 0.1 10^3/ul (0.0-0.1); BASOPHILS % 0.5 % (0.0-2.0); EOSINOPHILS # 0.1 10^3/ul (0.0-0.5); EOSINOPHILS % 0.7 % (0.0-7.0); HEMATOCRIT 33.8 % (37.0-47.0); HEMOGLOBIN 11.8 g/dl (12.0-16.0); LYMPHOCYTES # 2.2 10^3/ul (0.8-2.9); LYMPHOCYTES % 21.9 % (15.0-51.0); MEAN CORPUSCULAR HEMOGLOBIN 30.3 pg (29.0-33.0); MEAN CORPUSCULAR HGB CONC 34.9 g/dl (32.0-37.0); MEAN CORPUSCULAR VOLUME 86.9 fl (82.0-101.0); MEAN PLATELET VOLUME 11.5 fl (7.4-10.4); MONOCYTE # 1.1 10^3/ul (0.3-0.9); MONOCYTES % 11.3 % (0.0-11.0); NEUTROPHIL # 6.6 10^3/ul (1.6-7.5); NEUTROPHILS % 65.1 % (39.0-77.0); PLATELET COUNT 112 10^3/UL (140-415); RED BLOOD COUNT 3.89 10^6/ul (4.20-5.40); RED CELL DISTRIBUTION WIDTH 14.1 % (11.5-14.5)
[2017-10-30 05:26] LABS: WHITE BLOOD COUNT 10.1 10^3/ul (4.8-10.8)
[2017-10-30 05:42] LABS: INR 0.92; PARTIAL THROMBOPLASTIN TIME 25.4 Sec (25.0-35.0); PROTIME 12.4 Sec (11.9-14.9)
[2017-10-30 05:44] LABS: ALANINE AMINOTRANSFERASE 84 IU/L (13-69); ALBUMIN 2.5 g/dl (3.3-4.9); ALBUMIN/GLOBULIN RATIO 0.86; ALKALINE PHOSPHATASE 136 IU/L (42-121); ANION GAP 8 (8-16); ASPARTATE AMINO TRANSFERASE 72 IU/L (15-46); BILIRUBIN,INDIRECT 0.1 mg/dl (0-1.1); BILIRUBIN,TOTAL 0.1 mg/dl (0.2-1.3); BLOOD UREA NITROGEN 15 mg/dl (7-20); CALCIUM 8.5 mg/dl (8.4-10.2); CARBON DIOXIDE 21 mmol/L (21-31); CHLORIDE 110 mmol/L (97-110); GLUCOSE 94 mg/dl (70-220); POTASSIUM 4.2 mmol/L (3.5-5.1); SODIUM 135 mmol/L (135-144); TOTAL PROTEIN 5.4 g/dl (6.1-8.1); URIC ACID 6.8 mg/dl (3.1-7.9)
[2017-10-30 07:33] LABS: FIBRIN SPLIT PRODUCT <10 ug/ml (<10)
[2017-10-30] MEDS ORDERED: MAGNESIUM SULFATE 4 GM/100 ML 0 ML (08:51)
[2017-10-30] MEDS: PRENATAL VITAMIN PO (09:00)
[2017-10-30] MEDS ORDERED: MAGNESIUM SULFATE 4 GM/100 ML 100 ML IV (09:00)
[2017-10-30] MEDS ORDERED: CA GLUCONATE (GM) 10% 10ML INJ IV (09:00)
[2017-10-30] MEDS: LACTATED RINGER'S 1,000 ML IV ×2 (09:05→23:18)
[2017-10-30] MEDS: MAGNESIUM SULFATE 20 GM/500 ML 500 ML IV (09:07)
[2017-10-30] MEDS ORDERED: morphine SULFATE/PF (10 MG/10 ML) INJ (10:47)
[2017-10-30] MEDS ORDERED: FENTAnyl 50 MCG/ML VIAL (10:47)
[2017-10-30] MEDS ORDERED: OXYTOCIN 30 UNITS/LR 500 ML IV ×2 (11:15→15:30)
[2017-10-30 11:26] LABS: ADD UMIC YES; UR AMORPHOUS CRYSTAL FEW /HPF (NONE SEEN); UR ASCORBIC ACID NEGATIVE (NEGATIVE); UR BACTERIA FEW /HPF (NONE SEEN); UR BILIRUBIN (Dip) NEGATIVE (NEGATIVE); UR BLOOD (Dip) NEGATIVE (NEGATIVE); UR CLARITY SLIGHTLY CLOUDY (CLEAR); UR COLOR YELLOW (YELLOW); UR GLUCOSE (Dip) NEGATIVE (NEGATIVE); UR KETONES (Dip) NEGATIVE (NEGATIVE); UR LEUKOCYTE ESTERASE (Dip) NEGATIVE Leu/ul (NEGATIVE); UR MUCUS FEW /HPF (NONE SEEN); UR NITRITE (Dip) NEGATIVE (NEGATIVE); UR RBC 0 /HPF (0-5); UR SPECIFIC GRAVITY (Dip) 1.026 (1.003-1.030); UR TOTAL PROTEIN (Dip) 3+ mg/dl (NEGATIVE); UR UROBILINOGEN (Dip) NEGATIVE (NEGATIVE); UR WBC 6 /HPF (0-5)
[2017-10-30] MEDS ORDERED: DEXAMETHASONE 4 MG/ML 1 ML INJ (11:32)
[2017-10-30 12:07] LABS: CBV Base Excess -4.3 mmol/L; MODE ROOM AIR; Sample Type Blood venous; Site CORD
[2017-10-30] MEDS: OXYTOCIN 30 UNITS/LR 500 ML IV ×2 (12:30→15:49)
[2017-10-30] MEDS: CEFAZOLIN 2 GM/50 ML (PMX) 50 ML IVPB (13:04)
[2017-10-30] MEDS ORDERED: ZOLPIDEM 5 MG TAB PO (14:00)
[2017-10-30] MEDS ORDERED: NALOXONE (0.4 MG/ML) INJ IV (14:00)
[2017-10-30] MEDS ORDERED: morphine 2 MG INJ IV ×2 (14:00)
[2017-10-30] MEDS ORDERED: ONDANSETRON 4 MG INJ IV (14:00)
[2017-10-30] MEDS ORDERED: DIPHENHYDRAMINE 50 MG INJ IV (14:00)
[2017-10-30] MEDS: KETOROLAC 30 MG INJ IV (14:26)
[2017-10-30 14:55] LABS: ADD MAN DIFF? NO
[2017-10-30 14:59] LABS: ABNORMAL IP MESSAGE 1; BASOPHILS % 0.2 % (0.0-2.0); EOSINOPHILS % 0.1 % (0.0-7.0); HEMATOCRIT 37.3 % (37.0-47.0); HEMOGLOBIN 12.9 g/dl (12.0-16.0); LYMPHOCYTES # 0.8 10^3/ul (0.8-2.9); LYMPHOCYTES % 6.5 % (15.0-51.0); MEAN CORPUSCULAR HGB CONC 34.6 g/dl (32.0-37.0); MEAN CORPUSCULAR VOLUME 86.7 fl (82.0-101.0); MEAN PLATELET VOLUME 11.9 fl (7.4-10.4); MONOCYTE # 0.5 10^3/ul (0.3-0.9); MONOCYTES % 3.7 % (0.0-11.0); NEUTROPHIL # 11.3 10^3/ul (1.6-7.5); NEUTROPHILS % 89.1 % (39.0-77.0); PLATELET COUNT 93 10^3/UL (140-415); RED CELL DISTRIBUTION WIDTH 13.8 % (11.5-14.5)
[2017-10-30 14:59] LABS: WHITE BLOOD COUNT 12.6 10^3/ul (4.8-10.8)
[2017-10-30 15:07] LABS: POSITIVE DIFF @See below
[2017-10-30 15:15] LABS: INR 0.88; PARTIAL THROMBOPLASTIN TIME 26.5 Sec (25.0-35.0); PT RATIO 0.9
[2017-10-30 15:21] LABS: ALANINE AMINOTRANSFERASE 178 IU/L (13-69); ALBUMIN 2.6 g/dl (3.3-4.9); ALBUMIN/GLOBULIN RATIO 0.92; ALKALINE PHOSPHATASE 156 IU/L (42-121); ANION GAP 8 (8-16); ASPARTATE AMINO TRANSFERASE 197 IU/L (15-46); BILIRUBIN,INDIRECT 0.3 mg/dl (0-1.1); BILIRUBIN,TOTAL 0.3 mg/dl (0.2-1.3); BLOOD UREA NITROGEN 14 mg/dl (7-20); CARBON DIOXIDE 23 mmol/L (21-31); CHLORIDE 108 mmol/L (97-110); CREATININE 0.73 mg/dl (0.44-1.00); GLUCOSE 89 mg/dl (70-220); POTASSIUM 4.9 mmol/L (3.5-5.1); SODIUM 134 mmol/L (135-144); TOTAL PROTEIN 5.4 g/dl (6.1-8.1); URIC ACID 6.4 mg/dl (3.1-7.9)
[2017-10-30] MEDS ORDERED: LANOLIN 7 GM TUBE TOP (15:30)
[2017-10-30] MEDS ORDERED: MISOPROSTOL 200 MCG TAB PR (15:30)
[2017-10-30] MEDS ORDERED: CARBOPROST 250 MCG INJ IM (15:30)
[2017-10-30] MEDS ORDERED: METHYLERGONOVINE 0.2 MG INJ IM (15:30)
[2017-10-30 16:22] LABS: IMMEDIATE SPIN CROSSMATCH 1 1
[2017-10-30] MEDS: FUROSEMIDE 20 MG INJ IV ×2 (17:37→19:57)
[2017-10-30] MEDS: CEFAZOLIN 1 GM/50 ML (PMX) 50 ML IVPB (18:46)
[2017-10-30] MEDS ORDERED: LABETALOL 200 MG TAB PO ×4 (21:00)
[2017-10-30] MEDS ORDERED: LABETALOL 100 MG TAB PO (21:00)
[2017-10-31] MEDS: OXYTOCIN 30 UNITS/LR 500 ML IV ×2 (02:23→07:49)
[2017-10-31] MEDS: LABETALOL HCL 20MG INJ IV ×3 (02:24→09:24)
[2017-10-31 03:49] LABS: ADD MAN DIFF? NO
[2017-10-31] MEDS: KETOROLAC 30 MG INJ IV (03:54)
[2017-10-31 04:07] LABS: ALANINE AMINOTRANSFERASE 123 IU/L (13-69); ALBUMIN 2.6 g/dl (3.3-4.9); ALBUMIN/GLOBULIN RATIO 0.96; ALKALINE PHOSPHATASE 140 IU/L (42-121); ASPARTATE AMINO TRANSFERASE 108 IU/L (15-46); BILIRUBIN,INDIRECT 0.2 mg/dl (0-1.1); BILIRUBIN,TOTAL 0.2 mg/dl (0.2-1.3); BLOOD UREA NITROGEN 14 mg/dl (7-20); CALCIUM 8.1 mg/dl (8.4-10.2); CARBON DIOXIDE 26 mmol/L (21-31); CHLORIDE 108 mmol/L (97-110); CREATININE 0.79 mg/dl (0.44-1.00); GLUCOSE 91 mg/dl (70-220); SODIUM 136 mmol/L (135-144); TOTAL PROTEIN 5.3 g/dl (6.1-8.1)
[2017-10-31 04:31] LABS: ANION GAP 7 (8-16); POTASSIUM 4.8 mmol/L (3.5-5.1)
[2017-10-31 04:33] LABS: BASOPHILS % 0.2 % (0.0-2.0); HEMATOCRIT 33.5 % (37.0-47.0); HEMOGLOBIN 11.5 g/dl (12.0-16.0); LYMPHOCYTES # 1.6 10^3/ul (0.8-2.9); LYMPHOCYTES % 12.1 % (15.0-51.0); MEAN CORPUSCULAR HEMOGLOBIN 29.8 pg (29.0-33.0); MEAN CORPUSCULAR HGB CONC 34.3 g/dl (32.0-37.0); MEAN CORPUSCULAR VOLUME 86.8 fl (82.0-101.0); MEAN PLATELET VOLUME 12.2 fl (7.4-10.4); MONOCYTE # 0.8 10^3/ul (0.3-0.9); NEUTROPHIL # 10.4 10^3/ul (1.6-7.5); NEUTROPHILS % 81.2 % (39.0-77.0); PLATELET COUNT 106 10^3/UL (140-415); RED BLOOD COUNT 3.86 10^6/ul (4.20-5.40); RED CELL DISTRIBUTION WIDTH 13.6 % (11.5-14.5)
[2017-10-31 04:33] LABS: WHITE BLOOD COUNT 12.9 10^3/ul (4.8-10.8)
[2017-10-31] MEDS: LABETALOL 200 MG TAB PO ×2 (05:49→22:06)
[2017-10-31] MEDS: SENNA/DOCUSATE NA (8.6MG/50MG) TAB PO ×3 (09:45→22:06)
[2017-10-31] MEDS: NIFEdipine (XL) 60 MG TAB PO (09:45)
[2017-10-31 10:12] LABS: COLLECTION PERIOD 24 hrs
[2017-10-31 11:13] LABS: COLLECTION PERIOD 24 hrs; SCRET 0.79 mg/dl (0.44-1.00); VOLUME 1900 ml/24hrs
[2017-10-31 11:14] LABS: CREATININE,URINE RANDOM 50.32 mg/dl (20-320)
[2017-10-31] MEDS ORDERED: OXYCODONE/ACETAMINOPHEN (5/325) TAB PO (11:14)
[2017-10-31] MEDS ORDERED: HYDROCODONE/APAP (5/325) TAB PO ×2 (11:14)
[2017-10-31 13:01] LABS: VOLUME 1900 mls
[2017-10-31] MEDS: OXYCODONE/ACETAMINOPHEN (5/325) TAB PO (17:28)
[2017-10-31] MEDS: IBUPROFEN 600 MG TAB PO ×4 (18:00→22:05)
[2017-11-01] MEDS: IBUPROFEN 600 MG TAB PO ×3 (05:46→17:56)
[2017-11-01 08:00] LABS: ADD MAN DIFF? NO
[2017-11-01 08:06] LABS: ABNORMAL IP MESSAGE 1; BASOPHILS % 0.3 % (0.0-2.0); EOSINOPHILS % 0.4 % (0.0-7.0); HEMOGLOBIN 11.1 g/dl (12.0-16.0); LYMPHOCYTES # 2.4 10^3/ul (0.8-2.9); LYMPHOCYTES % 23.7 % (15.0-51.0); MEAN CORPUSCULAR HEMOGLOBIN 30.2 pg (29.0-33.0); MEAN CORPUSCULAR HGB CONC 34.7 g/dl (32.0-37.0); MEAN PLATELET VOLUME 11.9 fl (7.4-10.4); MONOCYTES % 10.1 % (0.0-11.0); NEUTROPHIL # 6.6 10^3/ul (1.6-7.5); NEUTROPHILS % 64.8 % (39.0-77.0); PLATELET COUNT 78 10^3/UL (140-415); RED BLOOD COUNT 3.68 10^6/ul (4.20-5.40); RED CELL DISTRIBUTION WIDTH 14.2 % (11.5-14.5)
[2017-11-01 08:06] LABS: WHITE BLOOD COUNT 10.1 10^3/ul (4.8-10.8)
[2017-11-01 08:09] LABS: POSITIVE DIFF @See below
[2017-11-01 08:27] LABS: ALANINE AMINOTRANSFERASE 122 IU/L (13-69); ALBUMIN 2.4 g/dl (3.3-4.9); ALBUMIN/GLOBULIN RATIO 0.92; ALKALINE PHOSPHATASE 136 IU/L (42-121); ANION GAP 6 (8-16); ASPARTATE AMINO TRANSFERASE 106 IU/L (15-46); BILIRUBIN,INDIRECT 0.5 mg/dl (0-1.1); BILIRUBIN,TOTAL 0.5 mg/dl (0.2-1.3); BLOOD UREA NITROGEN 12 mg/dl (7-20); CARBON DIOXIDE 30 mmol/L (21-31); CHLORIDE 106 mmol/L (97-110); CREATININE 0.85 mg/dl (0.44-1.00); GLUCOSE 80 mg/dl (70-220); POTASSIUM 4.2 mmol/L (3.5-5.1); SODIUM 138 mmol/L (135-144)
[2017-11-01] MEDS: SENNA/DOCUSATE NA (8.6MG/50MG) TAB PO ×2 (09:10→20:37)
[2017-11-01] MEDS: LABETALOL 200 MG TAB PO ×2 (09:11→20:37)
[2017-11-01] MEDS: NIFEdipine (XL) 30 MG TAB PO (09:11)
[2017-11-02] MEDS: IBUPROFEN 600 MG TAB PO ×3 (00:03→14:48)
[2017-11-02] MEDS: SENNA/DOCUSATE NA (8.6MG/50MG) TAB PO (08:46)
[2017-11-02] MEDS: LABETALOL 200 MG TAB PO (08:46)
[2017-11-02] MEDS: NIFEdipine (XL) 30 MG TAB PO (08:46)
[2017-11-02] MEDS ORDERED: DIPHTH/TET/ACEL PERTUSS (ADULT) 0.5 ML VIAL IM* (09:00)
[2017-11-02] MEDS ORDERED: NA PHOSPHATE/BIPHOS 133 ML ENEMA PR (10:30)
[2017-11-03] MEDS ORDERED: INFLUENZA VIRUS VACCINE 0.5 ML (DISPENSING) IM* (09:00)
== END 2017-11-02 15:37 | disposition home or self-care (01) | DRG 765 ==
LOC: OBT 13:39 → L-D 10-16 14:10 → PP1 10-31 21:20 → L-D 13:39 → OBT 16:20 → PP1 16:20 → L-D 10-30 11:02
PROC: 10D00Z1 Extraction of Products of Conception, Low, Open Approach (ICD-10-PCS; principal; 2017-10-30)
PROC: 30233R1 Transfusion of Nonautologous Platelets into Peripheral Vein, Percutaneous Approach (ICD-10-PCS; 2017-10-30)
DX: O75.4 Other complications of obstetric surgery and procedures (principal); I50.31 Acute diastolic (congestive) heart failure; O36.5120 Maternal care for known or suspected placental insufficiency, second trimester, not applicable or unspecified; O13.4 Gestational [pregnancy-induced] hypertension without significant proteinuria, complicating childbirth; O60.13X0 Preterm labor second trimester with preterm delivery third trimester, not applicable or unspecified; O12.04 Gestational edema, complicating childbirth; Z3A.26 26 weeks gestation of pregnancy; Z37.0 Single live birth
CPT/HCPCS: 36415; 36430; 36600; 71045; 76815; 80048; 80053; 81001; 82575; 82803; 82950; 83735; 84100; 84112; 84156; 84484; 84560; 85025; 85362; 85384; 85610; 85730; 86850; 86900; 86901; 86920; 87086; 88307; 93005; 93306; 93970; 99464; J1940

== ENCOUNTER 2018-02-07 13:46 | Emergency (ER) | payer MEDICAID ==
[2018-02-07] MEDS: IBUPROFEN 600 MG TAB PO (14:50)
[2018-02-07] MEDS: ACETAMINOPHEN 325 MG TAB PO (14:50)
[2018-02-07 15:31] LABS: ADD UMIC YES; UR ASCORBIC ACID NEGATIVE (NEGATIVE); UR BACTERIA FEW /HPF (NONE SEEN); UR BILIRUBIN (Dip) NEGATIVE (NEGATIVE); UR BLOOD (Dip) NEGATIVE (NEGATIVE); UR CLARITY SLIGHTLY CLOUDY (CLEAR); UR COLOR YELLOW (YELLOW); UR GLUCOSE (Dip) NEGATIVE (NEGATIVE); UR KETONES (Dip) NEGATIVE (NEGATIVE); UR LEUKOCYTE ESTERASE (Dip) NEGATIVE Leu/ul (NEGATIVE); UR NITRITE (Dip) NEGATIVE (NEGATIVE); UR RBC 1 /HPF (0-5); UR SPECIFIC GRAVITY (Dip) 1.015 (1.003-1.030); UR SQUAMOUS EPITHELIAL CELL FEW /HPF (FEW); UR TOTAL PROTEIN (Dip) 2+ mg/dl (NEGATIVE); UR UROBILINOGEN (Dip) NEGATIVE (NEGATIVE); UR WBC 4 /HPF (0-5)
[2018-02-07] MEDS: CEPHALEXIN 500 MG CAP PO (15:39)
== END 2018-02-07 17:06 | disposition home or self-care (01) ==
LOC: FTE 13:46
DX: R50.9 Fever, unspecified (principal)
CPT/HCPCS: 71045; 76642; 81001; 81025; 99285-25